=== PATIENT | female | born 1965 | race Asian ===

== ENCOUNTER 2019-01-26 08:56 | Emergency (ER) | payer BC ==
[2019-01-26 09:10] VITALS: BP 117/61
--- NOTE | 2019-01-26 09:52 | UC ---
Knee Pain HPI - HPI Summary HPI Summary: RIGHT KNEE SWELLING AND PAIN AND BRUISING GETTING WORSE AFTER TRIPPING ON HER DAUGHTER'S SCHOOL BAG AT HOME AND LANDING ON HER RIGHT KNEE ON A TILE FLOOR. ADMITS SHE HAS NOT BEEN RESTING IT MUCH. OF NOTE PATIENT HAS A HISTORY OF LIVER CANCER AND THROMBOCYTOPENIA FOLLOWED BY DR. BOLES. - History of Current Complaint Chief Complaint: UCLowerExtremity Stated Complaint: LEG INJURY Time Seen by Provider: 01/26/19 09:11 Hx Obtained From: Patient Onset/Duration: Sudden Onset, Lasting Days, Still Present Severity Initially: Moderate Severity Currently: Moderate Pain Intensity: 8 Pain Scale Used: 0-10 Numeric Character: Sharp Aggravating Factor(s): Movement, Weight Bearing Alleviating Factor(s): Rest Associated Signs And Symptoms: Positive: Swelling, Bruising Able to Bear Weight: Yes - Allergies/Home Medications Allergies/Adverse Reactions: Allergies Allergy/AdvReac Type Severity Reaction Status Date / Time morphine Allergy Vomiting Verified 01/26/19 09:11 PMH/Surg Hx/FS Hx/Imm Hx Other Cancer History: LIVER - Surgical History Surgical History: Yes Surgery Procedure, Year, and Place: RFA FOR LIVER LESION/WILL TRY TO FIND PREV REPORT. 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 Negative: Calf Tenderness Physical Exam Triage Information Reviewed: Yes Appearance: Well-Appearing, No Pain Distress, Well-Nourished Vital Signs: Initial Vital Signs Temp 98.6 F 01/26/19 09:07 Pulse 65 01/26/19 09:07 Resp 16 01/26/19 09:07 BP 117/61 01/26/19 09:07 Pulse Ox 100 01/26/19 09:07 Vital Signs Reviewed: Yes Eyes: Positive: Conjunctiva Clear ENT: Positive: Hearing grossly normal Neck: Positive: Supple Respiratory: Positive: No respiratory distress, No accessory muscle use Cardiovascular: Positive: Pulses Normal Abdomen Description: Positive: Soft Musculoskeletal: Positive: ROM Limited @ - RIGHT KNEE FLEXION, Other: - RIGHT KNEE SWOLLEN. TTP SUPRAPATELLAR AND PREPATELLAR AREAS. FULL EXTENSION BUT DECREASED FLEXION. NO CALF TENDERNESS. ACHILLES INTACT Psychological: Positive: Age Appropriate Behavior Skin: Positive: Other - RLE: BRUISING FROM KNEE TO ANKLE Diagnostics - Radiology RIGHT KNEE XRAYS Radiology Interpretation Completed By: Radiologist Summary of Radiographic Findings: 1. Anterior soft tissue swelling. Consider potential prepatellar hematoma or bursal fluid collection. 2. Negative for joint effusion, fracture, or malalignment. Preserved joint spaces. Knee Pain Course/Dx - Course Course Of Treatment: XRAYS TODAY SHOW: 1. Anterior soft tissue swelling. Consider potential prepatellar hematoma or bursal fluid collection. 2. Negative for joint effusion, fracture, or malalignment. Preserved joint spaces. PATIENT WITH BASELINE LOW PLATELETS FOLLOWED BY DR. BOLES. 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 PATIENT ADVISED TO CALL DR. BOLES TO INFORM HIM OF HER CURRENT INJURY. I CALLED ORTHOPEDICS AND THEY WILL SEE HER PRESENTLY. SHE IS TO GO DIRECTLY TO THEIR OFFICE FROM HERE FOR AN APPOINTMENT WITH DR. RODAS FOR FURTHER EVALUATION AND TO DISCUSS TREATMENT OPTIONS. - Differential Dx/Diagnosis Provider Diagnosis: Prepatellar bursitis, right knee Discharge ED - Sign-Out/Discharge Documenting (check all that apply): Patient Departure All imaging exams completed and their final reports reviewed: Yes - Discharge Plan Condition: Stable Disposition: HOME Patient Education Materials: Knee Bursitis (ED) Referrals: Shawna Hoskins MD [Primary Care Provider] - Deven Rodas MD [Medical Doctor] - (GO DIRECTLY TO THE [facility]TH[facility] OFFICE FROM HERE. THEY ARE EXPECTING YOU.) Additional Instructions: RIGHT KNEE XRAY SHOWS: 1. Anterior soft tissue swelling. Consider potential prepatellar hematoma or bursal fluid collection. 2. Negative for joint effusion, fracture, or malalignment. Preserved joint spaces. GO DIRECTLY TO ORTH[facility]. THEY ARE EXPECTING YOU. - Billing Disposition and Condition Condition: STABLE Disposition: Home
== END 2019-01-26 10:12 | disposition home or self-care (01) ==
LOC: UCEAST 08:56
DX: M70.41 Prepatellar bursitis, right knee (principal); Z88.5 Allergy status to narcotic agent
CPT/HCPCS: 99211; G0463